=== PATIENT | female | born 1955 | race Caucasian/White ===

== ENCOUNTER → 2024-07-13 | Outpatient (CLI) | payer MEDICARE, BC, SELFPAY ==
--- NOTE | 2024-07-13 12:06 | XR_ITS ---
Examination: Thyroid sonography complete TECHNIQUE: Grayscale sonographic images thyroid lobes are carful analysis Exam date and time: July 13, 2024 at 1217 hours INDICATIONS: Right throat discomfort 3 months, history thyroid biopsy August 11, 2023 FINDINGS: Right thyroid 4.5 x 2.0 x 2.2 cm Upper pole cyst 5 x 5 mm Vascular midpole nodule 15 x 18 x 17 mm Midpole cyst 10 x 7 x 8 mm Left thyroid 3.7 x 1.7 x 1.6 cm Midpole cyst 4 x 5 mm Lower pole cyst 8 x 5 x 7 mm IMPRESSION: Midpole vascular right nodule 15 x 18 x 17 mm
== END | disposition home or self-care (01) ==
LOC: CDIM 11:55
PROVIDERS: PCP Nurse Practitioner Family; Referring Provider Nurse Practitioner Family; Visit Provider Nurse Practitioner Family
DX: E04.1 Nontoxic single thyroid nodule (principal)
CPT/HCPCS: 76536

== ENCOUNTER → 2024-09-19 | Outpatient (CLI) | payer MEDICARE, BC, SELFPAY ==
--- NOTE | 2024-09-19 08:30 | XR_ITS ---
Examination: CT chest, without intravenous contrast. Sagittal and coronal 2-D reconstructions. Exam date and time: September 19, 2024 0843 hours Comparison May 27, 2023 INDICATIONS: Diagnosis right breast carcinoma, 2 mm pulmonary nodule right lower lobe on CT chest May 27, 2023 CTDI:vol (mGy) 14.7 DLP: (mGycm) 528 Technique: Multiple 3.0 mm axial sections of the chest to been obtained. Bone and lung density settings are obtained. Sagittal and coronal 2-D reconstructions have been obtained. Low dose protocols were performed. One or more of the following dose reduction techniques were used; automated exposure control, adjustment of the mA and/or KV according to patient size, use of iterative reconstruction technique. Findings: 14 mm right thyroid nodule No thoracic aortic aneurysm dilatation Pulmonary artery segments are not enlarged No paratracheal tracheobronchial or bronchopulmonary adenopathy 2 mm pulmonary nodule right lower lobe No new pulmonary nodules No pneumonia or pulmonary edema No focal liver or splenic lesions No hydronephrosis No pancreatic mass IMPRESSION: Stable 2 mm pulmonary nodule right lower lobe No new pulmonary nodules 14 mm right thyroid nodule, please see the thyroid sonogram report July 13, 2024
== END | disposition home or self-care (01) ==
PROVIDERS: Referring Provider Family Medicine; Visit Provider Family Medicine
DX: R91.1 Solitary pulmonary nodule (principal); E04.1 Nontoxic single thyroid nodule
CPT/HCPCS: 71250

== ENCOUNTER → 2024-09-24 | Outpatient (CLI) | payer MEDICARE, BC, SELFPAY ==
--- NOTE | 2024-09-24 09:23 | EKG_ITS ---
[facility] Test Date: 2024-09-24 Pat Name: ANNABEL ABREU Department: Room: - Gender: Female Sales Force Administrator: JAMIE : 1955 Requested By: Edward Frederick Order Number: [id number] Reading MD: Edward Frederick Measurements Intervals [place] Rate: 68 P: 54 NH: 168 QRS: 24 QRSD: 122 T: 44 QT: 378 QTc: 404 Interpretive Statements SINUS RHYTHM MODERATE INTRAVENTRICULAR CONDUCTION DELAY [110+ ms QRS DURATION] Compared to ECG 01/14/2023 09:34:27 Intraventricular conduction delay now present /store/S0/[id number]/[id number].pdf
[2024-09-24 09:43] LABS: Basophils % (Auto) 1 % (0-2.5); Eosinophils # (Auto) 0.2 Thou/mm3 (0.0-0.5); Eosinophils % (Auto) 4 % (0-10); Hematocrit 36.6 % (36.0-46.0); Hemoglobin 12.2 g/dL (12.0-16.0); Immature Granulocytes % (Auto) 0 % (0-0); Immature Granulocytes Auto 0.02 Thou/mm3 (0.00-0.00); Lymphocytes # (Auto) 1.6 Thou/mm3 (1.0-4.8); Lymphocytes % (Auto) 26 % (10-50); Mean Corpuscular HGB Conc 33.3 g/dl (31.0-37.0); Mean Corpuscular Hemoglobin 30.4 pg (25.0-35.0); Mean Corpuscular Volume 91 fL (80-100); Monocytes # (Auto) 0.4 Thou/mm3 (0.0-0.8); Monocytes % (Auto) 6 % (0-12); Neutrophils # (Auto) 3.9 Thou/mm3 (1.8-7.7); Neutrophils % (Auto) 64 % (37-80); Nucleated Red Blood Cell % 0 /100 WBC (0); Platelet Count 273 Thou/mm3 (140-440); RDW Standard Deviation 42.1 fL (36.4-46.3); Red Blood Count 4.01 Miln/mm3 (4.00-5.20); White Blood Count 6.1 Thou/mm3 (3.6-11.0)
[2024-09-24 09:57] LABS: Alanine Aminotransferase 16 U/L (10-49); Albumin, Serum 4.1 gm/dL (3.4-4.8); Albumin/Globulin Ratio 1.9 (1.2-2.2); Alkaline Phosphatase 114 U/L (46-116); Anion Gap 5 (7-16); Aspartate Amino Transferase 20 U/L (0-34); BUN/Creatinine Ratio 21 Ratio (12-20); Bilirubin,Total 0.4 mg/dL (0.3-1.2); Blood Urea Nitrogen 17 mg/dL (9-23); Calcium 10.2 mg/dL (8.3-10.6); Calcium (Corrected) 10.2 mg/dL (8.5-10.1); Carbon Dioxide 31.3 mMol/L (20.0-31.0); Chloride 106 mMol/L (98-107); Creatinine (Component) 0.8 mg/dL (0.6-1.3); Globulin 2.2 gm/dL (2.3-3.5); Glucose 100 mg/dL (74-106); Osmolality,Calculated 284 (275-295); Potassium 4.3 mMol/L (3.4-5.1); Sodium 142 mMol/L (136-145); Total Protein 6.3 gm/dL (5.7-8.2); eGFR > 60 See Note
== END | disposition home or self-care (01) ==
LOC: COPL 08:37 → SLAB 09:16
PROVIDERS: PCP Family Medicine; Referring Provider Orthopaedic Surgery; Visit Provider Orthopaedic Surgery
DX: M79.641 Pain in right hand (principal)
CPT/HCPCS: 36415; 80053; 85025; 93005

== ENCOUNTER → 2024-12-06 | Outpatient (CLI) | payer MEDICARE, BC, SELFPAY ==
[2024-12-06 14:38] LABS: Basophils # (Auto) 0.1 Thou/mm3 (0.0-0.2); Basophils % (Auto) 1 % (0-2.5); Eosinophils # (Auto) 0.2 Thou/mm3 (0.0-0.5); Eosinophils % (Auto) 4 % (0-10); Hematocrit 37.5 % (36.0-46.0); Hemoglobin 12.6 g/dL (12.0-16.0); Immature Granulocytes % (Auto) 0 % (0-0); Immature Granulocytes Auto 0.02 Thou/mm3 (0.00-0.00); Lymphocytes # (Auto) 1.8 Thou/mm3 (1.0-4.8); Lymphocytes % (Auto) 35 % (10-50); Mean Corpuscular HGB Conc 33.6 g/dl (31.0-37.0); Mean Corpuscular Hemoglobin 30.7 pg (25.0-35.0); Mean Corpuscular Volume 91 fL (80-100); Monocytes # (Auto) 0.3 Thou/mm3 (0.0-0.8); Monocytes % (Auto) 6 % (0-12); Neutrophils # (Auto) 2.7 Thou/mm3 (1.8-7.7); Neutrophils % (Auto) 54 % (37-80); Nucleated Red Blood Cell % 0 /100 WBC (0); Platelet Count 277 Thou/mm3 (140-440); RDW Standard Deviation 42.7 fL (36.4-46.3); Red Blood Count 4.11 Miln/mm3 (4.00-5.20)
[2024-12-06 14:42] LABS: Iron 111 mcg/dL (50-170); Percent Iron Saturation 33 % (20-55); Total Iron Binding Capacity 328 mcg/dL (250-425); Unsaturated Iron Binding 217 (225-295)
[2024-12-06 14:45] LABS: Alanine Aminotransferase 21 U/L (10-49); Albumin, Serum 4.4 gm/dL (3.4-4.8); Alkaline Phosphatase 124 U/L (46-116); Anion Gap 6 (7-16); BUN/Creatinine Ratio 14 Ratio (12-20); Bilirubin,Total 0.3 mg/dL (0.3-1.2); Blood Urea Nitrogen 13 mg/dL (9-23); Calcium 9.6 mg/dL (8.3-10.6); Calcium (Corrected) 9.6 mg/dL (8.5-10.1); Carbon Dioxide 31.7 mMol/L (20.0-31.0); Cardiac Risk Estimate 2.7 RATIO (3.7-5.6); Chloride 105 mMol/L (98-107); Cholesterol 174 mg/dL (132-200); Creatinine (Component) 0.9 mg/dL (0.6-1.3); Globulin 2.2 gm/dL (2.3-3.5); Glucose 91 mg/dL (74-106); HDL Cholesterol 64 mg/dL (40-60); LDL Cholesterol,Calculated 91 mg/dL (0-130); Osmolality,Calculated 285 (275-295); Potassium 4.8 mMol/L (3.4-5.1); Sodium 143 mMol/L (136-145); Thyroid Stimulating Hormone 0.59 uIU/mL (0.55-4.78); Total Protein 6.6 gm/dL (5.7-8.2); Triglycerides 94 mg/dL (30-150); eGFR > 60 See Note
[2024-12-06 14:46] LABS: Folate > 24.00 ng/mL (>5.38); Vitamin B12 1548 pg/mL (211-911); Vitamin D 25 Hydroxy Total 55.1 ng/mL (7.3-40.2)
== END | disposition home or self-care (01) ==
LOC: COPL 13:39
PROVIDERS: PCP Family Medicine; Referring Provider Family Medicine; Visit Provider Family Medicine
DX: M96.1 Postlaminectomy syndrome, not elsewhere classified (principal); K91.2 Postsurgical malabsorption, not elsewhere classified
CPT/HCPCS: 36415; 80053; 80061; 82306; 82607; 82746; 83540; 83550; 84443; 85025

== ENCOUNTER 2025-02-14 13:28 | Emergency (ER) | payer MEDICARE, BC, SELFPAY ==
[2025-02-14 13:31] VITALS: BP 115/59; PULSE 86; RESP 22; TEMP 36.9; O2SAT 97
--- NOTE | 2025-02-14 13:32 | XR_ITS ---
Examination: AP chest single view Technique one AP portable upright chest single view Date and time: February 14, 2025, 1440 hours INDICATIONS: Chest pain shortness of breath today FINDINGS: Normal heart size Minimal accentuation of the basilar bronchovascular markings. No lobar pneumonia Reverse right shoulder arthroplasty IMPRESSION: Mild bibasilar bronchitis pattern
--- NOTE | 2025-02-14 13:37 | PD.EDSOB ---
ED SOB =RME/HPI General Chief Complaint: Shortness of Breath/Dyspnea Stated Complaint: SOB Time Seen by Provider: 02/14/25 13:31 Source: patient and EMS Arrival date/time: 02/14/25 13:28 Mode of arrival: EMS Limitations: no limitations RME / HPI RME / HPI Narrative: Patient is a 69-year-old female with a history of hypertension, COPD, chronic pain, anxiety. She is here today as she developed diffuse myalgias, shortness of breath, and increased anxiety this morning. She took 2 home test and was positive for COVID. This increased her anxiety and she contacted 911 for transportation here. She she does have nausea but has no vomiting. She has no diarrhea. She has no acute lower leg edema. She has no fevers. Related Data Home Medications ?Medication ?Instructions ?Recorded ?Confirmed zolpidem 10 mg tablet (Ambien) 10 mg PO HS #0 tabs 09/09/16 09/29/23 Held on 09/29/23. Instructions: Resume on 09/30/23. albuterol sulfate 90 mcg/actuation 1 puff inhalation Q4H PRN 05/26/20 09/29/23 aerosol inhaler Shortness Of Breath Or Wheezing atorvastatin 10 mg tablet 20 mg PO QDAY 05/26/20 09/29/23 cholecalciferol (vitamin D3) 50 2,000 unit PO QDAY 05/26/20 09/29/23 mcg (2,000 unit) tablet (Vitamin D3) nabumetone 500 mg tablet 500 mg PO BID 05/26/20 09/29/23 omeprazole 20 mg capsule,delayed 20 mg PO QDAY 05/26/20 09/29/23 release tramadol 50 mg tablet 50 mg PO TID 05/26/20 09/29/23 Held on 09/29/23. Instructions: Resume on 09/30/23. calcium citrate 500 mg (2,376 mg) 500 mg PO QDAY 01/13/23 09/29/23 effervescent tablet duloxetine 40 mg capsule,delayed 60 mg PO DAILY 01/13/23 09/29/23 release aspirin 81 mg tablet 81 mg PO QDAY 09/29/23 09/29/23 Allergies Allergy/AdvReac Type Severity Reaction Status Date / Time acetaminophen (From Vicodin) Allergy Severe Hives Verified 02/14/25 13:49 hydrocodone Allergy Severe Itching Verified 02/14/25 13:49 meperidine Allergy Severe VOMTING Verified 02/14/25 13:49 propoxyphene Allergy Severe Itching Verified 02/14/25 13:49 codeine Allergy Intermediate Severe Verified 02/14/25 13:49 Itching hydromorphone AdvReac Severe Nausea and Verified 02/14/25 13:49 Vomiting Review of Systems Review of Systems Systems Reviewed: All systems reviewed, normal except as documented ED Exam General Limitations: Present no limitations General appearance: Present alert and in no apparent distress Head Head exam: Present atraumatic Eye Eye exam: Present normal appearance, PERRL and EOMI ENT ENT exam: Present normal exam, normal oropharynx and mucous membranes moist Neck Neck exam: Present normal inspection, full ROM and trachea midline Chest Chest inspection: Present normal inspection and symmetric chest wall rise Respiratory Respiratory exam: Absent respiratory distress, wheezes, accessory muscle use or prolonged expiratory phase Cardiovascular Cardiovascular exam: Present regular rate, normal rhythm and normal heart sounds Abdominal Exam Abdominal exam: Present soft and normal bowel sounds Extremities Exam Extremities exam: Present normal inspection and full ROM Back Exam Back exam: Present normal inspection and full ROM Neurological Exam Neurological exam: Present alert and oriented X3 Psychiatric Psychiatric exam: Present normal affect and normal mood Skin Skin exam: Present warm, dry, intact and normal color Course Quality Measures none Orders Category Date Time Status EKG (ED ONLY) *Do not use* NOW Care 02/14/25 13:32 Active EKG (ED Only) Stat Exams 02/14/25 13:32 Ordered XR chest 1V Stat Exams 02/14/25 13:32 Completed BNP [B-Type Natriuretic Peptide] Stat Lab 02/14/25 14:41 Completed CBC Stat Lab 02/14/25 14:41 Completed CMP [Comprehensive Metabolic Panel] Stat Lab 02/14/25 14:41 Completed Lipase Stat Lab 02/14/25 14:41 Completed Mag [Magnesium] Stat Lab 02/14/25 14:41 Completed Troponin I Stat Lab 02/14/25 14:41 Completed Ibuprofen Tab [Motrin Tab] Med 02/14/25 13:32 Discontinued 600 mg PO X1 ONE Magnesium Oxide [Mag-Ox 400] Med 02/14/25 15:21 Discontinued 400 mg PO X1 ONE Vital Signs Vital signs: Vital Signs Temperature 98.4 F 02/14/25 13:31 Pulse Rate 86 08/21/25 13:31 Respiratory Rate 22 H 02/14/25 13:31 Blood Pressure 115/59 L 02/14/25 13:31 Pulse Oximetry (%) 97 02/14/25 13:31 Oxygen Delivery Method Nasal Cannula 02/14/25 13:31 Oxygen Flow Rate 6 02/14/25 13:31 Shortness of Breath / Dyspnea Patient data External records reviewed:: None Clinical information provided by:: patient and EMS Social determinants that could affect healthcare access:: none Patient has the following chronic illnesses:: Hyperlipidemia, anxiety, chronic pain How is presenting disease/condition affected by chronic disease/condition?: exacerbated by Evaluation data The following diagnostics were reviewed and interpreted by me:: lab results (CBC is unremarkable, metabolic panel is unremarkable, magnesium is 1.4, patient is given 400 mg of this here. Troponin was negative.), radiology exam(s) (Clear and expanded lungs, questionable bibasilar bronchitis pattern.) and EKG tracing(s) (Normal sinus rhythm with no ST changes or dynamic T waves.) Lab and/or radiology exams considered but not ordered:: n/a Interpretation Summary: Workup was unremarkable with exception of mild hypomagnesia Medications / Prescriptions Medications or Prescriptions considered but not ordered:: n/a Medication administrations:: Medication Administration History Discontinued Medications Ibuprofen (Ibuprofen Tab 600 Mg Tablet) 600 mg PO X1 ONE Stop: 02/14/25 13:33 Magnesium Oxide (Magnesium Oxide 400 Mg Tablet) 400 mg PO X1 ONE Stop: 02/14/25 15:22 See above Consultations Consultation(s) initiated? (list below): No Diagnosis Shortness of Breath Differential Diagnosis: congestive heart failure, community acquired pneumonia and asthma with exacerbation Most likely diagnosis given after review of the tests above:: COVID-19 Admission Indicated Admission indicated?: not indicated Admission Request Was there a request for admission?: No Disposition Plan Disposition Plan: Discharge Discharge Attestation Discharge Attestation: The patient and all family members were given an opportunity to ask questions and understood the discharge instructions. Discharge instructions specifically effects, indications for sooner follow up or return to the emergency department, and the expected course of current diagnosis. Patient condition: Stable Discharge Plan Plan Patient Disposition: HOME (Self Care) Patient condition on transfer: Stable Prescriptions/Referrals Prescriptions/Med Rec: No Action zolpidem [Ambien] 10 MG tablet 10 mg PO HS Qty: 0 atorvastatin 10 mg tablet 20 mg PO QDAY Patient Comments: TK 1 T PO QD tramadol 50 mg tablet 50 mg PO TID Patient Comments: TK 1 T PO BID PRN omeprazole 20 mg capsule,delayed release(DR/EC) 20 mg PO QDAY albuterol sulfate 90 mcg/actuation HFA aerosol inhaler 1 puff INHALATION Q4H PRN (Reason: Shortness Of Breath Or Wheezing) nabumetone 500 mg tablet 500 mg PO BID Patient Comments: TK 1 T PO BID cholecalciferol (vitamin D3) [Vitamin D3] 50 mcg (2,000 unit) Tablet 2,000 unit PO QDAY duloxetine 40 mg Capsule,Delayed Release(Dr/Ec) 60 mg PO DAILY calcium citrate 500 mg Tablet, Effervescent 500 mg PO QDAY aspirin 81 mg Tablet 81 mg PO QDAY Problem List Clinical Impression: COVID-19 Patient/Caregiver Discharge Instructions Education Materials: 2019-nCoV Additional Instructions: - grading supervisor the prescription of Paxlovid that you state is at your pharmacy and start that. - You may use ibuprofen or naproxen to help with your symptoms. - Follow-up with your primary doctor. - Return here as needed for any worsening or emergent changes. Print Language: Irish Stand Alone Forms: [employer] Award Info., Patient Portal Info Letter
[2025-02-14 13:50] VITALS: PULSE 82; RESP 18; O2SAT 95
[2025-02-14 13:51] VITALS: TEMP 39.3
[2025-02-14 13:52] VITALS: BMI 28.3
[2025-02-14 14:56] LABS: Basophils # (Auto) 0.0 Thou/mm3 (0.0-0.2); Basophils % (Auto) 0 % (0-2.5); Eosinophils # (Auto) 0.1 Thou/mm3 (0.0-0.5); Eosinophils % (Auto) 1 % (0-10); Hematocrit 38.2 % (36.0-46.0); Hemoglobin 12.7 g/dL (12.0-16.0); Immature Granulocytes Auto 0.02 Thou/mm3 (0.00-0.00); Lymphocytes # (Auto) 0.5 Thou/mm3 (1.0-4.8); Lymphocytes % (Auto) 8 % (10-50); Mean Corpuscular HGB Conc 33.2 g/dl (31.0-37.0); Mean Corpuscular Hemoglobin 30.1 pg (25.0-35.0); Mean Corpuscular Volume 91 fL (80-100); Monocytes # (Auto) 0.5 Thou/mm3 (0.0-0.8); Monocytes % (Auto) 8 % (0-12); Neutrophils # (Auto) 5.4 Thou/mm3 (1.8-7.7); Neutrophils % (Auto) 82 % (37-80); Nucleated Red Blood Cell # 0.00 Thou/mm3 (0.00-0.00); Nucleated Red Blood Cell % 0 /100 WBC (0); Platelet Count 268 Thou/mm3 (140-440); RDW Standard Deviation 43.2 fL (36.4-46.3); Red Blood Count 4.22 Miln/mm3 (4.00-5.20); White Blood Count 6.6 Thou/mm3 (3.6-11.0)
[2025-02-14 15:02] VITALS: BP 118/75; PULSE 85; RESP 16; O2SAT 99
--- NOTE | 2025-02-14 15:05 | PC.NURSE ---
PATIENT BROUGHT TO ROOM 18. PATIENT HAS TESTED COVID POSITIVE RECENTLY. PATIENT STATES SHE HAS STATED MULTIPLE TIMES THAT SHE NEEDS BOTH WHEELCHAIR AND BED. PATIENT AWARE THAT HER TEMPERATURE IS HIGH AND REFUSING TO TAKE IBUPROFEN. PATIENT STATING SHE WILL NOT TAKE THAT MEDICATION AND WILL ONLY TAKE ALEVE. PATIENT IS ALERT AND ORIENTED X4 PATIENT THREATENING TO SIT ON THE FLOOR OF THE ROOM IF SHE DOES NOT GET BOTH WHEELCHAIR AND BED. CHARGE NURSE EARL MADE AWARE. JUDY WALTON MADE AWARE. PATIENT VITALS STABLE.
[2025-02-14 15:16] LABS: Alanine Aminotransferase 23 U/L (10-49); Albumin, Serum 4.5 gm/dL (3.4-4.8); Albumin/Globulin Ratio 2.0 (1.2-2.2); Alkaline Phosphatase 119 U/L (46-116); Anion Gap 10 (7-16); Aspartate Amino Transferase 24 U/L (0-34); B-Type Natriuretic Peptide 51 pg/mL (0-100); BUN/Creatinine Ratio 13 Ratio (12-20); Bilirubin,Total 0.3 mg/dL (0.3-1.2); Blood Urea Nitrogen 13 mg/dL (9-23); Calcium 10.2 mg/dL (8.3-10.6); Calcium (Corrected) 10.2 mg/dL (8.5-10.1); Carbon Dioxide 28.9 mMol/L (20.0-31.0); Chloride 100 mMol/L (98-107); Creatinine (Component) 1.0 mg/dL (0.6-1.3); Estimated Creatinine Clearance 48.1 mL/min (>60); Globulin 2.3 gm/dL (2.3-3.5); Glucose 126 mg/dL (74-106); Lipase 26 U/L (12-53); Magnesium 1.4 mg/dL (1.6-2.6); Osmolality,Calculated 279 (275-295); Potassium 3.4 mMol/L (3.4-5.1); Sodium 139 mMol/L (136-145); Total Protein 6.8 gm/dL (5.7-8.2); Troponin I < 0.020 ng/mL (0.0-0.045); eGFR > 60 See Note
--- NOTE | 2025-02-14 15:21 | PC.NURSE ---
PATIENT REFUSING TO STAY IN BED AND GRABBING ROLLING CHAIR FROM ED HALLWAY. PATIENT EDUCATED ON FALL RISK. PATIENT BEING MEAN TO STAFF INCLUDING CHARGE NURSE. PATIENT DOES NOT WANT TO TAKE MEDS OFFERED. JUDY WALTON MADE AWARE AND SPEAKING TO PATIENT AT BEDSIDE
[2025-02-14] MEDS: MAGNESIUM OXIDE 400 MG TABLET PO (15:27)
--- NOTE | 2025-02-14 15:33 | PC.NURSE ---
PATIENT REFUSED TO SIGN DISCHARGE PAPERWORK. PATIENT VITALS STABLE UPON DISCHARGE.
== END 2025-02-14 15:40 | disposition home or self-care (01) ==
LOC: SERX 16:06
PROVIDERS: Physician Assistant Medical; Emergency Provider Emergency Medicine; PCP Family Medicine
DX: U07.1 COVID-19 (principal); E83.42 Hypomagnesemia; E78.5 Hyperlipidemia, unspecified; G89.29 Other chronic pain; I10 Essential (primary) hypertension; J44.9 Chronic obstructive pulmonary disease, unspecified; F41.9 Anxiety disorder, unspecified; Z88.5 Allergy status to narcotic agent; Z88.6 Allergy status to analgesic agent; Z79.891 Long term (current) use of opiate analgesic; Z79.899 Other long term (current) drug therapy
CPT/HCPCS: 36415; 71045; 80053; 83690; 83735; 83880; 84484; 85025; 99283; A9270